=== PATIENT | male | born 1985 | race Caucasian/White ===

== ENCOUNTER 2023-12-05 11:58 | Outpatient (CLI) | payer BC, SELFPAY | END 2023-12-05 11:59 | disposition home or self-care (01) | LOC: NFLDREF 12-08 07:10 | PROVIDERS: Visit Provider Family Medicine | DX: Z13.228 Encounter for screening for other metabolic disorders (principal); Z13.220 Encounter for screening for lipoid disorders | CPT/HCPCS: 80048; 80061 ==

== ENCOUNTER 2024-12-17 07:52 | Outpatient (CLI) | payer BC, SELFPAY | END 2024-12-17 07:53 | disposition home or self-care (01) | PROVIDERS: PCP Physician Assistant Medical; Visit Provider Family Medicine | DX: I51.7 Cardiomegaly (principal); I34.0 Nonrheumatic mitral (valve) insufficiency; I07.1 Rheumatic tricuspid insufficiency | CPT/HCPCS: 93306 ==

== ENCOUNTER 2025-06-21 19:02 | Emergency (ER) | payer BC, SELFPAY ==
[2025-06-21 19:07] VITALS: BP 149/90; PULSE 75; RESP 18; TEMP 37.1; O2SAT 98; BMI 37.6
--- NOTE | 2025-06-21 19:11 | CRLHL7_ITS ---
For Patients: As a result of the Century Cures Act, medical imaging exams and procedure reports are released immediately into your electronic medical record. You may view this report before your referring provider. If you have questions, please contact your health care provider. Indication: Cut by shattered bowl on the radial side at the base of finger Technique: Three views of the left 5th digit Comparison: None Findings/Impression: No acute fracture or malalignment. The bones are unremarkable. Suspected small soft tissue laceration at the level of the 5th proximal interphalangeal joint, radial aspect, with no subcutaneous gas or radiopaque foreign bodies. Dictated by Filemon Mercedes MD @ 06/21/2025 7:48:43 PM (Electronically Signed)
--- NOTE | 2025-06-21 19:46 | ED.UPPEXIN ---
HPI - Extremity Injury (Upper) General Date Seen: 06/21/25 Chief Complaint: Extremity Pain/Injury, Upper Stated Complaint: Injured pinky on left hand Time Seen by Provider: 06/21/25 19:09 Source: patient Mode of arrival: ambulatory Limitations: no limitations History of Present Illness HPI narrative: Patient presents to the emergency department for a laceration to his left pinky finger. He states he was doing dishes when a bowl shattered and cut his finger. He states this happened shortly prior to arrival. No other injuries noted. Last tetanus was November 2024. Related Data Home Medications ?Medication ?Instructions ?Recorded ?Confirmed fluticasone 100 mcg-salmeterol 50 1 inh PO DAILY 11/19/24 mcg/dose blistr powdr for inhalation (Advair Diskus) Previous Rx's ?Medication ?Instructions ?Recorded albuterol sulfate 90 mcg/actuation 1 inh inhalation Q4-6H PRN 12/07/24 aerosol inhaler shortness of breath or wheezing #8.5 grams montelukast 10 mg tablet 10 mg PO QPM #90 tabs 12/07/24 Allergies Allergy/AdvReac Type Severity Reaction Status Date / Time bananas Allergy Severe Anaphylaxis Uncoded 11/19/24 13:10 shellfish Allergy Severe Anaphylaxis Uncoded 11/19/24 13:10 Review of Systems Narrative: Pertinent systems reviewed and were negative unless stated in HPI PFSH PFSH Medical History Lumbar radicular syndrome ?M54.16 - Radiculopathy, lumbar region (ICD-10) Mild intermittent asthma ?J45.20 - Mild intermittent asthma, uncomplicated (ICD-10) Surgical History History of third molar tooth extraction ?K08.409 - Partial loss of teeth, unspecified cause, unspecified class (ICD-10) Family History Mother Breast cancer Grandfather Diabetes Heart disease Grandmother Diabetes Heart disease Uncle Heart disease Daughter Seizure disorder Other Mental disorder Social History Narrative: 4 children Alcohol ingestion 1-4 drinks/week Non smoker Does not use illicit drugs What is your current living situation?: I presently have a place to live Problems where you live: smoke detectors missing or not working and carbon monoxide detectors missing or not working In the past 12 months, utilities in danger of being shut off: no In past 12 months, lack of transportation kept you from medical appts, meetings, work, or getting things needed for daily living: no In the past 12 mos, have been you worried that your food would run out before you had money to buy more?: never true In the past 12 mos, the food you bought just didn't last and you didn't have money to buy more?: never true Smoking Status: Never smoker Do you use any of these nicotine containing products: None Second hand tobacco smoke exposure: No How often do you have a drink containing alcohol: never How often do you have six or more drinks on one occasion: Never AUDIT-C Alcohol total score: 0 Non-prescribed substance use: denies use How often does anyone, including family, friends and others, physically hurt you: never How often does anyone, including family, friends and others, insult or talk down to you: fairly often How often does anyone, including family, friends and others, threaten you with harm: never How often does anyone, including family, friends and others, scream or curse at you: never service: No Health Related Social Needs: Inadequate housing (Z59.1) and Other personal risk factors, not elsewhere classified (Z91.89) Exam Narrative: Exam Narrative: Const: Well-nourished, Well-developed, in no distress Eyes: No conjunctival injection, and symmetrical lids HENT: Atraumatic external nose and ears. Moist mucous membranes. Removed MSK:Extremities w/o deformity, Normal Active ROM Skin: Warm, Dry. No rashes or lesions. 1 cm laceration to the base of the radial side of the left pinky finger that is irregularly shaped Neuro: Normal Muscle tone, No focal neurological deficits. Psych: Awake, Alert, & Oriented x3. Appropriate mood and affect. Const: Vital Signs, click to edit/add: Vital Signs - 24 hr 06/21/25 19:07 Temperature 98.8 F Pulse Rate [Pulse Oximeter] 75 Respiratory Rate 18 Blood Pressure [Ri ght Upper Arm] 149/90 H Pulse Oximetry 98 Oxygen Delivery Me thod Room Air Course Vital Signs Vital signs: Initial Vital Signs Temperature 98.8 F 06/21/25 19:07 Temperature Source Temporal Artery Scan 06/21/25 19:07 Pulse Rate 75 06/21/25 19:07 Pulse Rhythm Regular 06/21/25 19:07 Respiratory Rate 18 06/21/25 19:07 Blood Pressure 149/90 H 06/21/25 19:07 Blood Pressure Mean 109 H 06/21/25 19:07 Blood Pressure Position Sitting 06/21/25 19:07 Pulse Oximetry 98 06/21/25 19:07 Oxygen Delivery Method Room Air 06/21/25 19:07 Vital Signs Temperature 98.8 F 06/21/25 19:07 Pulse Rate 75 06/21/25 19:07 Respiratory Rate 18 06/21/25 19:07 Blood Pressure 149/90 H 06/21/25 19:07 Pulse Oximetry 98 06/21/25 19:07 Oxygen Delivery Method Room Air 06/21/25 19:07 Temperature 98.8 F 06/21/25 19:07 Pulse Rate 75 06/21/25 19:07 Respiratory Rate 18 06/21/25 19:07 Blood Pressure 149/90 H 06/21/25 19:07 Pulse Oximetry 98 06/21/25 19:07 Oxygen Delivery Method Room Air 06/21/25 19:07 Medications Administered Medications: Discontinued Medications Generic Name Dose Route Start Last Admin Trade Name Ripq PRN Reason Stop Dose Admin Lidocaine HCl 3 ml 06/21/25 20:24 06/21/25 20:26 Lidocaine 1% 5 Ml (Pf) 5 Ml Vial INJECTION 06/21/25 20:25 3 ml ONCE ONE Administration MDM - Extremity Injury (Upper) MDM Narrative Medical decision making narrative: Patient is a 40-year-old male presenting for laceration to his finger. Will do an x-ray as he did cut with a broken [employer] and want to make sure there are no foreign bodies. X-ray interpreted by myself and the radiologist individually shows no signs of foreign body or other concerning abnormalities. Laceration repair was done. He tolerated the procedure. Of note he did have an episode where he feeling lightheaded. Symptoms resolved after he ate a sandwich. States he did get to eat anything and he thinks he was just very hungry. He will be discharged. Discharge Plan Discharge Clinical Impression: Laceration Patient Disposition: Home, Self-Care Condition: Stable Additional Instructions: Follow-up with your primary care provider or urgent care in the next 7 days to have the 3 sutures removed. For next 6 months, once sutures are removed, whenever you go outside put a dab of sunscreen over the laceration site to improve scar appearance. Topical antibiotics are not necessary at this time but I do recommend putting them on while you are working considering you wear leather gloves. Keep the area covered while you are at work and replace the gauze if it becomes sweaty. Try not to move the finger too much for the 1st few days so you dont accidentally break the sutures. Patient can shower but do not submerge the laceration until sutures are removed If you develop any of the following signs called Kanavel's Signs it could be a sign of flexor tenosynovitis and is an emergency that you need to return to emergency department immediately for -Pain with passive extension (often the first sign seen) -Percussion tenderness (tenderness over entire length of flexor tendon sheath) -Uniform swelling (symmetric finger swelling along length of the tendon sheath) -Flexion posture (flexed posture of involved digit at rest to minimize pain) Activity Level: No Restrictions Discharge Diet: Regular Prescriptions: No Action fluticasone propion-salmeterol [Advair Diskus] 100-50 mcg/dose blister with device 1 inh PO DAILY montelukast 10 mg tablet 10 mg PO QPM Qty: 90 3RF albuterol sulfate 90 mcg/actuation HFA aerosol inhaler 1 inh inhalation Q4-6H PRN (Reason: shortness of breath or wheezing) Qty: 8.5 5RF Follow Up/Referrals: Rg Mondragon PA-C [Primary Care Provider, Family Practice] Stand Alone Forms: [facility] Info Instructions Procedures Laceration Finger laceration: Name of person performing procedure: Servando Crisostomo Site: hand (Pinky finger) Side (If applicable): left Size (cm): 1 Description: irregular Depth: simple, single layer Local Anesthetic: lidocaine 1% (Digital nerve block) Amount of anesthesia used (mL): 3 Pre-repair: wound explored and irrigated extensively Skin layer closed with: nylon Size (cm): 5-0 Number of sutures: 3 Technique: simple, interrupted Conclusion: patient tolerated procedure
[2025-06-21] MEDS: LIDOCAINE 1% 5 ml (pf) 5 ML VIAL 3 ML INJECTION (20:26)
== END 2025-06-21 20:36 | disposition home or self-care (01) ==
PROVIDERS: Emergency Provider Student in an Organized Health Care Education/Training Program; PCP Physician Assistant Medical
DX: S61.217A Laceration without foreign body of left little finger without damage to nail, initial encounter (principal); W26.9XXA Contact with unspecified sharp object(s), initial encounter; Y93.G1 Activity, food preparation and clean up; Y92.000 Kitchen of unspecified non-institutional (private) residence as the place of occurrence of the external cause
CPT/HCPCS: 12001; 73140; 99283

== ENCOUNTER 2025-07-25 07:56 | Outpatient (CLI) | payer BC, SELFPAY ==
--- NOTE | 2025-07-25 09:40 | P.ANES_ITS ---
Anesthesia Charges Start Date/Time Anesthesia Start Date: 07/25/25 Anesthesia Start Time: 09:20 Stop Date/Time Anesthesia Stop Date: 07/25/25 Anesthesia Stop Time: 09:37 Coding CPT Codes CPT Codes: ANES UPR GI NDSC PX NOS - 33543 ([id number]) P3 - PATIENT W/SEVERE SYS DISEASE, QK - CORRECTIONAL AGENCY DIRECTOR 2-4 CNCRNT ANES PROC, QX - FEEDER WORKER POWER UNIT OPERATOR SVC W/ MD MED DIRECTION
--- NOTE | 2025-07-25 09:40 | W.ANESCHARGE ---
Anesthesia Charges Start Date/Time Anesthesia Start Date: 07/25/25 Anesthesia Start Time: 09:20 Stop Date/Time Anesthesia Stop Date: 07/25/25 Anesthesia Stop Time: 09:37 Coding CPT Codes CPT Codes: ANES UPR GI NDSC PX NOS - 31700 ([id number]) P3 - PATIENT W/SEVERE SYS DISEASE, QK - WADER BOOT TOP ASSEMBLER 2-4 CNCRNT ANES PROC, QX - SALES CLOSER SVC W/ MD MED DIRECTION
--- NOTE | 2025-07-25 10:46 | P.ANES_ITS ---
Anesthesia Charges Start Date/Time Anesthesia Start Date: 07/25/25 Anesthesia Start Time: 09:20 Stop Date/Time Anesthesia Stop Date: 07/25/25 Anesthesia Stop Time: 09:37 Coding CPT Codes CPT Codes: ANES UPR GI NDSC PX NOS - 48683 ([id number]) QK - SENIOR SCHEDULER 2-4 CNCRNT ANES PROC, QX - HELP DESK SUPPORT SVC W/ MD MED DIRECTION, P3 - PATIENT W/SEVERE SYS DISEASE
--- NOTE | 2025-07-25 10:46 | W.ANESCHARGE ---
Anesthesia Charges Start Date/Time Anesthesia Start Date: 07/25/25 Anesthesia Start Time: 09:20 Stop Date/Time Anesthesia Stop Date: 07/25/25 Anesthesia Stop Time: 09:37 Coding CPT Codes CPT Codes: ANES UPR GI NDSC PX NOS - 15320 ([id number]) QK - PLUMBING AND HEATING CONTRACTOR 2-4 CNCRNT ANES PROC, QX - DESKTOP SPECIALIST SVC W/ MD MED DIRECTION, P3 - PATIENT W/SEVERE SYS DISEASE
== END 2025-07-25 07:57 | disposition home or self-care (01) ==
LOC: OP CLINIC 07:57
PROVIDERS: PCP Physician Assistant Medical; Visit Provider Internal Medicine
DX: R13.10 Dysphagia, unspecified (principal); K21.00 Gastro-esophageal reflux disease with esophagitis, without bleeding; K22.89 Other specified disease of esophagus
CPT/HCPCS: 00731; 43239; J2704; J3490